=== PATIENT | female | born 1970 | race Caucasian/White ===

== ENCOUNTER 2020-01-20 06:00 | Inpatient (IN) | payer OTHER, SELFPAY ==
[~2020-01-20] VITALS: Ht 175.3 cm; Wt 95.3 kg
[2020-01-20 06:28] LABS: HCG,QUAL RESULT NEGATIVE (NEGATIVE)
[2020-01-20] MEDS ORDERED: CEFAZOLIN 2 GM IVPB PREMIX 50 ML IV ONE (06:45)
[2020-01-20] MEDS ORDERED: FENO48TA4 PO (07:11)
[2020-01-20] MEDS ORDERED: GLYB5TAB7 PO (07:11)
[2020-01-20] MEDS ORDERED: METF1000 PO (07:11)
[2020-01-20] MEDS ORDERED: MEPERIDINE HCL/PF 25 MG/ML DISP.SYRIN IVP PRN (07:45)
[2020-01-20] MEDS ORDERED: HYDROmorphone 1 MG INJ. 1 MG/ML AMPUL IVP PRN ×2 (07:45)
[2020-01-20] MEDS ORDERED: ONDANSETRON HCL 4 MG/2 ML VIAL IVP PRN ×2 (07:45→13:00)
[2020-01-20] MEDS ORDERED: ONDANSETRON HCL 4 MG/2 ML VIAL ONE ×2 (12:12→21:28)
[2020-01-20] MEDS ORDERED: FUROSEMIDE 40 MG/4 ML VIAL ONE (12:12)
[2020-01-20] MEDS ORDERED: ROCURONIUM BROMIDE 10 MG/ML (ZEMURON) ONE (12:12)
[2020-01-20] MEDS ORDERED: SEVOFLURANE 15 MIN GAS INH ONE (12:12)
[2020-01-20] MEDS ORDERED: DEXAMETHASONE SOD PHOSPHATE 4 MG/ML VIAL ONE (12:12)
[2020-01-20] MEDS ORDERED: BUPIVACAINE /PF 0.75% 10 ML VIAL INJ ONE (12:12)
[2020-01-20] MEDS ORDERED: DEXTROSE 50% JECT 50 ML DISP.SYRIN ONE (12:12)
[2020-01-20] MEDS ORDERED: BUPIVACAINE /PF 0.5% 30 ML VIAL ONE (12:12)
[2020-01-20] MEDS ORDERED: NS 1000 ML IV.SOLN IV ONE (12:12)
[2020-01-20] MEDS ORDERED: NS IRRIG SOLN 1000 ML IR ONE (12:12)
[2020-01-20] MEDS ORDERED: MORPHINE SULFATE 10MG/10ML PF AMP ONE (12:12)
[2020-01-20] MEDS ORDERED: PROPOFOL 200MG/ 20ML VIAL (DIPRIVAN) IV ONE (12:12)
[2020-01-20] MEDS ORDERED: ePHEDrine sulfate 50 MG/ML VIAL ONE (12:12)
[2020-01-20] MEDS ORDERED: LR 1,000 ML IV.SOLN IV ONE (12:12)
[2020-01-20] MEDS: LR 1,000 ML IV SCH ×2 (12:59→20:50)
[2020-01-20] MEDS ORDERED: CEFAZOLIN 2 GM IVPB PREMIX 50 ML IV SCH ×2 (13:00→16:15)
[2020-01-20] MEDS ORDERED: OXYCODONE/ACETAMINOPHEN 5-325 TABLET PO PRN ×4 (13:00)
[2020-01-20] MEDS ORDERED: SIMETHICONE 80 MG TAB.CHEW PO PRN (13:00)
[2020-01-20] MEDS ORDERED: HYDROcodone/ACETAMIN 5-325 MG TAB (NORCO/ VICODIN) PO PRN (13:00)
--- NOTE | 2020-01-20 13:50 | NUR ---
RECEIVED PT FROM OR. PT STABLE. CONTINUE TO MONITOR. Addendum: 01/20/20 at 1701 by Allie Silveira RN PT'S SURGICAL DRESSING C/D/I.
[2020-01-20 14:09] VITALS: BP_SYST 120
--- NOTE | 2020-01-20 16:00 | NUR ---
ROUNDS PT RESTING IN BED, CHEST RISE AND FALL NOTED. EASILY AWAKEN. NO ACUTE DISTRESS NOTED. PT DENIES PAIN AND SOB AT THIS TIME ALL NEEDS MET. CALL LIGHT IN REACH. FALL AND ASPIRATION PRECAUTIONS IN PLACE. CONTINUE TO MONITOR.
[2020-01-20 16:35] VITALS: BP_SYST 118
--- NOTE | 2020-01-20 17:06 | NUR ---
CHECKED URINE OUTPUT URINE OUTPUT >120ML POST-OP
[2020-01-20] MEDS: KETOROLAC TROMETHAMINE 30 MG VIAL IVP SCH (17:18)
--- NOTE | 2020-01-20 17:20 | NUR ---
SCHEDULED PAIN MED ADMINISTERED ORDERED, EDUCATION GIVEN, TOLERATED WELL. CONTINUE TO MONITOR.
[2020-01-20 17:35] VITALS: BP_SYST 124
[2020-01-20 18:35] VITALS: BP_SYST 154
--- NOTE | 2020-01-20 18:50 | NUR ---
CLOSING NOTES PT AWAKE, ALERT, AND ORIENTED. PT EATING ICE CHIPS. NONLABORED BREATHING NOTED ON ROOM AIR. PT DENIES PAIN AND SOB AT THIS TIME. IV LINE INTACT AND PATENT, NO SIGNS OF INFILTRATION NOTED. MCNAIR CATHETER INTACT AND DRAINING. NO ACUTE DISTRESS NOTED. ALL NEEDS MET. CALL LIGHT IN REACH. FALL AND ASPIRATION PRECAUTIONS IN PLACE. WILL ENDORSE CARE TO NOC NURSE AND TO HAVE PT GET OUT OF BED WHEN TOLERATING.
--- NOTE | 2020-01-20 19:30 | NUR ---
OPENING NOTE RECEIVED CARE OF PT AND SBAR REPORT. PT IS RESTING IN BED, AAOX4, NO S/S OF DISTRESS. BREATHING IS EVEN AND UNLABORED TO O2 VIA NC AT 2L. SURGICAL DRESSING IS C/D/I. FRESH ICE PACK APPLIED TO ABDOMEN. ABDOMINAL BINDER IS IN PLACE. MCNAIR CATHETER IS INTACT AND DRAINING TO GRAVITY. ON-Q PUMP IS ON AND IN PLACE. POC DISCUSSED WITH PT. SAFETY AND FALL PRECAUTIONS ARE IN PLACE. WILL MONITOR.
[2020-01-20] MEDS ORDERED: SENNOSIDES/DOCUSATE SODIUM 1 TAB TABLET(SENOKOT-S) PO PRN (21:00)
[2020-01-20] MEDS ORDERED: TEMAZEPAM 15 MG CAPSULE PO PRN (21:00)
--- NOTE | 2020-01-20 21:12 | NUR ---
NAUSEA/ZOFRAN PT HAD ONE EPISODE OF EMESIS. PT GIVEN ZOFRAN FOR NAUSEA ORDERED PRN. MEDICATION ACTION AND POTENTIAL SIDE EFFECTS DISCUSSED WITH PT, PT VERBALIZED UNDERSTANDING. SAFETY PRECAUTIONS MAINTAINED. WILL MONITOR.
--- NOTE | 2020-01-20 22:05 | NUR ---
RN NOTE: PT ENCOURAGED TO GET UP AND AMBULATE. PT STATES THAT SHE FEELS "DIZZY" AND WOULD RATHER NOT WALK RIGHT NOW. WILL CONTINUE TO ENCOURAGE.
[2020-01-21 00:58] VITALS: BP_SYST 100; BP_SYST 108
[2020-01-21] MEDS: KETOROLAC TROMETHAMINE 30 MG VIAL IVP SCH ×4 (01:00→18:03)
--- NOTE | 2020-01-21 01:00 | NUR ---
TORADOL SCHEDULED TORADOL ADMINISTERED. MEDICATION EXPLAINED TO PT, PT VERBALIZED UNDERSTANDING. SAFETY MAINTAINED. WILL MONITOR.
[2020-01-21] MEDS ORDERED: KETOROLAC TROMETHAMINE 30 MG VIAL ONE ×2 (01:17→05:25)
--- NOTE | 2020-01-21 03:05 | NUR ---
SLEEPING PT RESTING IN BED, NO S/S OF ACUTE DISTRESS, BREATHING IS UNLABORED TO ROOM AIR, F/C DRAINING TO GRAVITY. SAFETY MAINTAINED. WILL MONITOR.
[2020-01-21] MEDS: LR 1,000 ML IV SCH ×3 (05:17→20:34)
--- NOTE | 2020-01-21 05:20 | NUR ---
TORADOL SCHEDULED TORADOL ADMINISTERED. MEDICATION EXPLAINED TO PT, PT VERBALIZED UNDERSTANDING. SAFETY MAINTAINED. WILL MONITOR.
--- NOTE | 2020-01-21 06:45 | NUR ---
AMBULATED PT DANGLED HER LEGS IN BED AND AMBULATED TO THE HALLWAY. PT DENIED PAIN BUT STATED SHE FELT A LITTLE DIZZY. PT RETURNED SAFELY TO BED AND ASSISTED TO REPOSITION HERSELF FOR COMFORT. PT TOLERATED ACTIVITY WELL, NO SOB NOTED. SAFETY PRECAUTIONS MAINTAINED. WILL MONITOR.
--- NOTE | 2020-01-21 07:07 | NUR ---
CLOSING NOTES PT AWAKE, ALERT, AND ORIENTED. NONLABORED BREATHING NOTED ON ROOM AIR. PT DENIES PAIN AND SOB AT THIS TIME. IV LINE INTACT AND PATENT, NO SIGNS OF INFILTRATION NOTED. MCNAIR CATHETER INTACT AND DRAINING. NO ACUTE DISTRESS NOTED. ALL NEEDS MET. CALL LIGHT IN REACH. FALL AND ASPIRATION PRECAUTIONS IN PLACE. WILL ENDORSE CARE TO DAY NURSE.
--- NOTE | 2020-01-21 09:09 | NUR ---
Nutrition Update Robe Scale 17 noted. Pt admitted for pelvic and perineal pain Diet: clear liquid BMI: 31.0 kg/m2 RD to follow per nutrition care standards.
--- NOTE | 2020-01-21 12:00 | NUR ---
Round patient is full awake. The dressing on abdominal is intact. Hold tradol since patient refused it. The pain level is well controlled. Assisted patient to walk with renee away. Patient is able to walk with walker without dizziness. Assisted patient to up in the chair.
[2020-01-21 12:49] VITALS: BP_SYST 107
--- NOTE | 2020-01-21 16:00 | NUR ---
MD Chelsea Ruiz showed and saw the patient. Doctor discussed with the result fo CT scan and d/c planing with Home PT. Patient well understood the progress and d/c planing. Leila was prescribes because no BM since Saturday. 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
[2020-01-21 17:04] VITALS: BP_SYST 138
[2020-01-21 18:18] LABS: HEMOGLOBIN 7.5 g/dL (12.0-16.0); RED BLOOD CELL COUNT(AUTO) 2.42 MIL/uL (4.2-6.2); WHITE BLOOD COUNT (AUTO) 3.1 K/uL (4.8-10.8)
[2020-01-21 18:19] LABS: HEMATOCRIT 22.3 % (36-48); MEAN CORPUSCULAR HEMOGLOBIN 31 pg (27-31); MEAN CORPUSCULAR HGB CONC 34 % (32-36); MEAN CORPUSCULAR VOLUME 92 fL (79.0-98.0); PLATELET COUNT (AUTO) 168 K/uL (130-430); RED CELL DISTRIBUTION WIDTH 12.5 % (9.0-15.0)
--- NOTE | 2020-01-21 18:36 | NUR ---
CLOSING NOTE PATIENT ASLEEP AT THIS TIME. NO SIGNS OF RESPIRATORY DISTRESS AND DISCOMFORT NOTED. BREATHING EVEN AND UNLABORED. CALL LIGHT WITHIN REACH. SAFETY PRECAUTIONS IN PLACE. ALL NEEDS MET THROUGHOUT THE SHIFT. WILL CONTINUE TO MONITOR UNTIL ENDORSE TO ONCOMING SHIFT NURSE FOR CONTINUITY OF CARE.
[2020-01-21 19:03] LABS: BAND % (MANUAL) 8 % (0-6); BASOPHILS % (MANUAL) 0 % (0-2); EOSINOPHILS % (MANUAL) 0 % (0-7); LYMPHOCYTES % (MANUAL) 50 % (20-46); MONOCYTES % (MANUAL) 10 % (0-11)
[2020-01-21 20:30] VITALS: BP_SYST 102
[2020-01-21] MEDS: DOCUSATE SODIUM 100 MG CAPSULE PO SCH (20:32)
[2020-01-21 23:46] VITALS: BP_SYST 105
[2020-01-22] MEDS: KETOROLAC TROMETHAMINE 30 MG VIAL IVP SCH ×3 (00:14→12:34)
[2020-01-22] MEDS: LR 1,000 ML IV SCH ×2 (05:56→12:59)
--- NOTE | 2020-01-22 06:10 | NUR ---
CLOSING NOTES Patient resting in bed, awake, breathing evenly and nonlabored on room air. Scheduled pain medication was given q6h, patient tolerated them well. Needs met throughout the shift. No s/s distress at this time, no other needs at this time. Fall/safety precautions, will endorse care to morning shift RN.
--- NOTE | 2020-01-22 08:02 | NUR ---
Initial notes: Patient is in her room, sitting up in chair, alert and oriented. Does not present any new complaints, states incision does not hurt but is uncomfortable. She is not in any distress on RA. Her L WRIST IV is patent and running NS at 125ml/hr. Care for her is pain management and discharge planning. I got full report from barrel liner nurse. Bed is low, locked, 2 side rails up and call light is within reach. Patient was advised not to move to bed by herself, to please press the call button to get help to ambulate back to bed - she verbalized comprehension. Ellie HART
[2020-01-22 08:15] VITALS: BP_SYST 124
[2020-01-22] MEDS: DOCUSATE SODIUM 100 MG CAPSULE PO SCH (08:29)
--- NOTE | 2020-01-22 10:08 | NUR ---
Patient was helped to ambulate to restroom, she stated she only passed gas. Bed is low, locked, 2 side rails are up and call light is within reach. Ellie HART
--- NOTE | 2020-01-22 11:55 | NUR ---
Patient is sitting up in chair, does not present any new complaints. She is eating her lunch meal. Bed is low, locked, 2 side rails up and call light is within reach. Ellie HART
[2020-01-22 12:03] VITALS: BP_SYST 117
--- NOTE | 2020-01-22 14:03 | NUR ---
Patient is in bed, she does not present any new complaints. Bed is low, locked, 2 side rails up and call light is within reach. Ellie HART
[2020-01-22] MEDS ORDERED: ROPIVACAINE HCL/PF 0.2% EPIDURAL 200 ML PLAST..BAG EP ONE (15:45)
--- NOTE | 2020-01-22 16:25 | NUR ---
Najma and Brian explained to the patient that she cannot go home until we get someone from OR to empty the Q pump. We indicated that we will keep her posted on the status. Patient verbalized comprehension. Ellie HART
[2020-01-22 16:28] VITALS: BP_SYST 115
[2020-01-22 17:57] VITALS: BP_SYST 140
--- NOTE | 2020-01-22 18:30 | NUR ---
Patient was given d/c education. She was taught how to use and empty her leg bag at home. She verbalized comprehension and was given time to ask questions. Her IV was removed and she was helped changed. Her daughter picked her up outside in the loading section. Ellie HART
== END 2020-01-22 18:30 | disposition home or self-care (01) | DRG 743 ==
LOC: SDS 06:00 → SMU 06:00 → EDSTATUS 07:30 → SDS 16:05 → SMU 16:05 → SDS 01-21 19:49 → SMU 01-21 19:52
PROVIDERS: ADMIT Specialist; ATTEND Specialist
PROC: 0UT90ZZ Resection of Uterus, Open Approach (ICD-10-PCS; principal; 2020-01-21)
PROC: 0UB70ZZ Excision of Bilateral Fallopian Tubes, Open Approach (ICD-10-PCS; 2020-01-21)
PROC: 0T8C0ZZ Division of Bladder Neck, Open Approach (ICD-10-PCS; 2020-01-21)
DX: D25.9 Leiomyoma of uterus, unspecified (principal); N92.6 Irregular menstruation, unspecified; E66.01 Morbid (severe) obesity due to excess calories; E11.9 Type 2 diabetes mellitus without complications; D64.9 Anemia, unspecified; N85.2 Hypertrophy of uterus; N93.8 Other specified abnormal uterine and vaginal bleeding; Z68.31 Body mass index [BMI] 31.0-31.9, adult
CPT/HCPCS: 36415; 82962; 84703; 85007; 85027; 87081; 88307; J0690; J1100; J1885; J1940; J2274; J2405; J2704; J3490; J7030; J7120; U0003-CS

== ENCOUNTER 2020-01-24 09:22 | Emergency (ER) | payer OTHER, SELFPAY ==
[~2020-01-24] VITALS: Ht 175.3 cm; Wt 95.3 kg
[~2020-01-24 09:22] MED LIST: FENO48TA4 PO; GLYB5TAB7 PO; METF1000 PO
[2020-01-24 09:31] VITALS: BP_SYST 133
--- NOTE | 2020-01-24 09:31 | NUR ---
Patient to ER bed 6 to gown for evaluation. Side rails up. Report given to TANNER Yancey.
[2020-01-24] MEDS ORDERED: NACL 0.9% 1,000 ML IV ONE (09:40)
--- NOTE | 2020-01-24 09:40 | NUR ---
ER Dr. Holder at bedside examining patient.
[2020-01-24] MEDS ORDERED: ONDANSETRON HCL 4 MG/2 ML VIAL IVP ONE (09:45)
[2020-01-24] MEDS ORDERED: MORPHINE 4 MG/ML INJ. SYRINGE IVP ONE (09:45)
--- NOTE | 2020-01-24 09:50 | NUR ---
Patient presented to ER C/O abdominal pain. Patient ambulatory to ER, afebrile, skin pink, abdominal incision steri-strips in place CDI, pain 10/10, c/o nausea, denies V/D. Patient stases she had surgical procedure by Dr. Tejeda 01/20/2020. Patien states her surgically placed pump was dislodged this morning.
[2020-01-24 10:27] LABS: BASOPHILS # (AUTO) 0.1 K/uL (0.0-0.2); BASOPHILS % (AUTO) 0.7 % (0.0-2.0); EOSINOPHILS # (AUTO) 0.4 K/uL (0.0-0.4); EOSINOPHILS % (AUTO) 6.2 % (0.0-4.0); HEMATOCRIT 26.3 % (36-48); HEMOGLOBIN 9.1 g/dL (12.0-16.0); LYMPHOCYTES # (AUTO) 1.3 K/uL (1.0-5.5); LYMPHOCYTES % (AUTO) 18.8 % (20.5-51.5); MEAN CORPUSCULAR HEMOGLOBIN 31 pg (27-31); MEAN CORPUSCULAR HGB CONC 34 % (32-36); MEAN CORPUSCULAR VOLUME 90 fL (79.0-98.0); MONOCYTES # (AUTO) 0.4 K/uL (0.0-1.0); NEUTROPHILS # (AUTO) 4.8 K/uL (1.8-7.7); NEUTROPHILS % (AUTO) 68.3 % (40.0-70.0); PLATELET COUNT (AUTO) 247 K/uL (130-430); RED BLOOD CELL COUNT(AUTO) 2.92 MIL/uL (4.2-6.2); RED CELL DISTRIBUTION WIDTH 12.5 % (9.0-15.0)
[2020-01-24 10:28] LABS: CALCIUM 8.8 mg/dL (8.4-11.0); CREATININE 0.81 mg/dL (0.55-1.30); POTASSIUM 4.2 mmol/L (3.5-5.1)
[2020-01-24 10:31] LABS: INR 0.9 (0.8-1.2); PROTHROMBIN TIME 9.3 SECS (9.5-12.5)
[2020-01-24 10:33] LABS: ALBUMIN 2.9 g/dL (3.4-4.8); TOTAL BILIRUBIN 0.3 mg/dL (0.0-1.0)
[2020-01-24 11:03] LABS: BILIRUBIN,URINE NEGATIVE (NEGATIVE); BLOOD, URINE 3+ (NEGATIVE); CLARITY/URINE CLEAR (CLEAR); COLOR,URINE YELLOW (YELLOW); GLUCOSE,URINE 3+ (NEGATIVE); KETONES,URINE NEGATIVE (NEGATIVE); LEUKOCYTE ESTERASE ,URINE NEGATIVE (NEGATIVE); NITRITE, URINE NEGATIVE (NEGATIVE); PROTEIN URINE NEGATIVE (NEGATIVE); UROBILINOGEN,URINE 0.2 (0.2-1.0)
[2020-01-24 11:17] LABS: BACTERIA,URINE None Seen /HPF (None Seen); RBC,URINE 20-50 /HPF (0-3); WBC,URINE NONE SEEN /HPF (0-3)
--- NOTE | 2020-01-24 13:10 | NUR ---
ER Dr. Holder at bedside examining patient.
[2020-01-24 13:19] VITALS: BP_SYST 122
--- NOTE | 2020-01-24 13:20 | NUR ---
Patient given written and verbal discharge instructions and verbalizes understanding. ER MD discussed with patient the results and treatment provided. Patient in stable condition. ID arm band removed. IV catheter removed intact and dressing applied, no active bleeding. Rx of Tylenol W/Codein & Zofran given. Patient educated on pain management and to follow up with PMD. Pain Scale 3/10. Opportunity for questions provided and answered. Medication side effect fact sheet provided.
== END 2020-01-24 13:19 | disposition home or self-care (01) ==
LOC: SED 09:22
DX: R10.2 Pelvic and perineal pain (principal); E11.9 Type 2 diabetes mellitus without complications; Z48.00 Encounter for change or removal of nonsurgical wound dressing; Z90.710 Acquired absence of both cervix and uterus
CPT/HCPCS: 36415; 80053; 81000; 82150; 83605; 83690; 85025; 85610; 85730; 87040; 96374; 96375; 99284; J2270; J2405; J7030; 96361

== ENCOUNTER 2024-03-17 06:00 | Day surgery (SDC) | payer OTHER ==
[~2024-03-17] VITALS: Ht 175.3 cm; Wt 99.8 kg
[~2024-03-17 06:00] MED LIST changes: -FENO48TA4 PO; +FENO48TA8 PO
[2024-03-17] MEDS ORDERED: fentaNYL CITRATE/PF 100 MCG/2 ML AMP ONE (06:43)
[2024-03-17] MEDS ORDERED: SIMETHICONE 40 MG/0.6 ML ML ONE (06:43)
[2024-03-17] MEDS ORDERED: MIDAZOLAM HCL 5 MG/5 ML VIAL ONE (06:44)
[2024-03-17 07:32] VITALS: O2SAT 99
[2024-03-17 11:58] VITALS: BP_SYST 124; PULSE 59; RESP 20
== END 2024-03-17 09:14 | disposition home or self-care (01) ==
LOC: SMU 06:00 → SDS 06:00
PROVIDERS: ATTEND Internal Medicine
DX: R10.30 Lower abdominal pain, unspecified (principal); K64.8 Other hemorrhoids; I10 Essential (primary) hypertension; E11.9 Type 2 diabetes mellitus without complications; E78.5 Hyperlipidemia, unspecified; Z79.84 Long term (current) use of oral hypoglycemic drugs; Z79.899 Other long term (current) drug therapy; Z80.0 Family history of malignant neoplasm of digestive organs
CPT/HCPCS: 45378; 99152; 82948; G0378; J2250; J3010